=== PATIENT | male | born 1975 | race African-American/Black ===

== ENCOUNTER 2018-10-05 12:32 | Emergency (ER) | payer SELFPAY ==
[~2018-10-05] VITALS: Ht 182.9 cm; Wt 91.0 kg
[2018-10-05 12:34] VITALS: BP 125/69
== END 2018-10-05 13:09 | disposition left against medical advice (07) ==
LOC: ER 12:55
DX: F10.129 Alcohol abuse with intoxication, unspecified (principal); I10 Essential (primary) hypertension; Y90.9 Presence of alcohol in blood, level not specified
CPT/HCPCS: 99283